=== PATIENT | female | born 1965 | race American Indian/Alaskan Native ===

== ENCOUNTER 2016-05-16 11:18 | Emergency (ER) | payer MEDICARE ==
--- NOTE | 2016-05-16 11:57 | Emergency Department Report ---
Chief Complaint: Upper Respiratory Infection Stated Complaint: SOB Time Seen by Provider: 05/16/16 11:53 - HPI History of Present Illness: 50 y/o female complain of shortness of breath x 1 day .pt state she is a current smoker a pack a day .pt denies any chest pain at present . - ROS Review of Systems: per HPI - Exam Vital Signs: Vital Signs 05/16/16 11:25 Temperature 98.1 F Pulse Rate 80 Respiratory 20 Rate Blood Pressure 154/87 O2 Sat by Pulse 97 Oximetry Physical Exam: GENERAL: The patient is well-developed and well-nourished. Patient is in NAD. HENT: Normocephalic. Atraumatic. Patient has moist mucous membranes. Throat: No erythema, swelling or exudates. EYES: Extraocular motions are intact, PERRL NECK: Supple. No meningitic signs are noted. There is no adenopathy noted. CHEST/LUNGS: wheezing noted bilateral . There is no respiratory distress noted. HEART/CARDIOVASCULAR: Regular rate and rhythm. Normal S1 S2. No murmurs, rubs , clicks, or gallops. ABDOMEN: Abdomen is soft, nontender.. Bowel sounds normoactive. There is no abdominal distention. Negative rebound tenderness. Negative Rovsing. Negative Garrison testing. Negative obturator and psoas signs. Negative CVA tenderness B/ L. : Deferred. SKIN: There is no rash. There is no edema. There is no diaphoresis. NEURO: The patient is A&Ox3. The patient has no focal neurologic deficits. MUSCULOSKELETAL: There is no tenderness or deformity. There is no limitation range of motion. PSYCH: Pt has appropriate mood and affect. MSE screening note: Focused history and physical exam performed. Due to findings the following was ordered: ED Disposition for MSE Condition: Stable
[2016-05-16] MEDS ORDERED: XOPENEX IH ONE (12:00)
[2016-05-16] MEDS ORDERED: ATROVENT IH ONE ×2 (12:01→15:10)
[2016-05-16 12:23] LABS: Basophils % (Auto) 0.8 % (0.0-1.8); Eosinophils % (Auto) 1.6 % (0.0-4.3); Hematocrit 33.7 % (30.3-42.9); Hemoglobin 10.9 gm/dl (10.1-14.3); Mean Corpuscular HGB Conc 32 % (30-34); Mean Corpuscular Hemoglobin 27 pg (28-32); Mean Corpuscular Volume 84 fl (79-97); Platelet Count 322 K/mm3 (140-440); Red Blood Count 4.02 M/mm3 (3.65-5.03); White Blood Count 6.5 K/mm3 (4.5-11.0)
[2016-05-16 12:38] LABS: Anion Gap 19 mmol/L; BUN/Creatinine Ratio 14.44; Blood Urea Nitrogen 13 mg/dL (7-17); Calcium 9.1 mg/dL (8.4-10.2); Carbon Dioxide 24 mmol/L (22-30); Chloride 99.5 mmol/L (98-107); Glucose 83 mg/dL (65-100); Potassium 4.7 mmol/L (3.6-5.0); Sodium 138 mmol/L (137-145)
[2016-05-16 13:53] LABS: Creatine Kinase MB 2.4 ng/mL (0.0-4.0)
[2016-05-16 13:58] LABS: Creatine Kinase 271 units/L (30-135)
[2016-05-16] MEDS ORDERED: PROVENTIL IH ONE (15:10)
[2016-05-16] MEDS ORDERED: DELTASONE PO ONE (15:11)
--- NOTE | 2016-05-16 17:15 | Emergency Department Report ---
HPI - General Chief Complaint: Upper Respiratory Infection Time Seen by Provider: 05/16/16 14:15 - HPI HPI: Chief complaint: Wheezing HPI: Patient with no history of asthma who smokes states she began wheezing last night. Patient has used an inhaler in the past but has never been diagnosed with asthma or COPD. Patient is a nonproductive cough and denies fever, nausea, vomiting or diarrhea. Patient states she has some mild chest soreness only when she coughs. Mode of arrival: EMS Source: Patient Began: During the night Duration: Continuous Context: See above Quality: See above Severity: 7 out of 10 Improved with: See above Worsened with: Shortness of breath worse on exertion Associated signs and symptoms: See above ED Past Medical Hx - Past Medical History Hx Heart Attack/AMI: Yes Hx Arthritis: Yes (HIP) Additional medical history: LP SHUNT/ PSEUDO TUMOR CEREBRAL ANGINA - Surgical History Additional Surgical History: WRIST - Social History Smoking Status: Current Every Day Smoker Substance Use Type: Alcohol - Medications Home Medications: Home Medications Medication Instructions Recorded Confirmed Last Taken Type Aspirin [Aspirin BABY CHEW TAB] 81 mg PO QDAY 04/24/16 04/24/16 Unknown History Carvedilol [Coreg] 25 mg PO DAILY 04/24/16 04/24/16 Unknown History Cyclobenzaprine HCl [Flexeril 5 MG 5 mg PO BID #6 tablet 04/24/16 Unknown Rx TAB] Diltiazem Cd [Cardizem Cd] 180 mg PO QDAY 04/24/16 04/24/16 Unknown History Folic Acid [Folvite] 1 mg PO QDAY 04/24/16 04/24/16 Unknown History Gabapentin [Gralise] 300 mg PO TID 04/24/16 04/24/16 Unknown History ISOSORBIDE MONOnitrate [Imdur ER] 30 mg PO DAILY 04/24/16 04/24/16 Unknown History Venlafaxine [Effexor] 25 mg PO DAILY 04/24/16 04/24/16 Unknown History ALBUTEROL Inhaler [ProAir HFA 2 puff IH QID PRN #1 inhalation 05/16/16 Unknown Rx Inhaler] Prednisone [predniSONE 5 mg (6-Day 5 mg PO .TAPER #1 tab.ds.pk 05/16/16 Unknown Rx Pack, 21 Tabs)] ED Review of Systems ROS: Stated complaint: SOB Other details as noted in HPI ROS Constitutional: No fever ENT: No uri symptoms Cardiovascular: No chest pain Respiratory: See HPI GI: No nausea vomiting or diarrhea : No dysuria frequency or urgency, Skin: No rash Neuro: No focal weakness or numbness Psych: History of depression Yanick/lymph: No edema Physical Exam - Physical Exam Vital Signs: Vital Signs 05/16/16 05/16/16 05/16/16 11:25 14:11 15:32 Temperature 98.1 F Pulse Rate 80 Pulse Rate [ 76 16 L Posterior Bilateral Throughout] Respiratory 20 Rate Respiratory 18 20 Rate [Posterior Bilateral Throughout] Blood Pressure 154/87 O2 Sat by Pulse 97 Oximetry 05/16/16 16:18 Temperature Pulse Rate Pulse Rate [ 71 Posterior Bilateral Throughout] Respiratory Rate Respiratory 18 Rate [Posterior Bilateral Throughout] Blood Pressure O2 Sat by Pulse Oximetry Physical Exam: GENERAL: The patient is well-developed well-nourished . HEENT: Normocephalic. Atraumatic. Extraocular motions are intact. Patient has moist mucous membranes. NECK: Supple. No meningitic signs are noted. There is no adenopathy noted. CHEST/LUNGS: Diffuse expiratory wheezes. There is no respiratory distress noted. HEART/CARDIOVASCULAR: Regular. There is no tachycardia. There is no gallop rub or murmur. ABDOMEN: Abdomen is soft, nontender. Patient has normal bowel sounds. There is no abdominal distention. SKIN: There is no rash. There is no edema. There is no diaphoresis. NEURO: The patient is awake, alert, and oriented. The patient is cooperative. The patient has no focal neurologic deficits. The patient has normal speech. MUSCULOSKELETAL: There is no tenderness or deformity. There is no limitation range of motion. There is no evidence of acute injury. ED Course Vital Signs 05/16/16 05/16/16 05/16/16 11:25 14:11 15:32 Temperature 98.1 F Pulse Rate 80 Pulse Rate [ 76 16 L Posterior Bilateral Throughout] Respiratory 20 Rate Respiratory 18 20 Rate [Posterior Bilateral Throughout] Blood Pressure 154/87 O2 Sat by Pulse 97 Oximetry 05/16/16 16:18 Temperature Pulse Rate Pulse Rate [ 71 Posterior Bilateral Throughout] Respiratory Rate Respiratory 18 Rate [Posterior Bilateral Throughout] Blood Pressure O2 Sat by Pulse Oximetry - Reevaluation(s) Reevaluation #1: 05/16/16 18:50 Patient given nebulizer treatment 2 and 60 mg of oral prednisone with improvement. ED Medical Decision Making - Lab Data Result diagrams: 05/16/16 12:12 05/16/16 12:12 - Radiology Data interpreted by me: Chest x-ray shows no acute process. Critical care attestation.: If time is entered above; I have spent that time in minutes in the direct care of this critically ill patient, excluding procedure time. ED Disposition Clinical Impression: Asthmatic bronchitis Qualifiers: Asthma severity: mild intermittent Asthma complication type: with acute exacerbation Qualified Code(s): J45.21 - Mild intermittent asthma with (acute) exacerbation Disposition: DISCHARGED TO HOME OR SELFCARE Is pt being admited?: No Does the pt Need Aspirin: No Condition: Stable Instructions: Asthma (ED), Acute Bronchitis (ED), Chronic Bronchitis (ED) Prescriptions: ALBUTEROL Inhaler [ProAir HFA Inhaler] 2 puff IH QID PRN #1 inhalation PRN Reason: Shortness Of Breath Prednisone [predniSONE 5 mg (6-Day Pack, 21 Tabs)] 5 mg PO .TAPER #1 tab.ds.pk Referrals: MATT GARCIA MD [Primary Care Provider] - 3-5 Days Time of Disposition: 17:11
[2016-05-16 17:47] VITALS: BP 145/76
--- NOTE | 2016-05-17 10:33 | XRay Report ---
ROUTINE CHEST, TWO VIEWS: HISTORY: Cough, upper respiratory infection. The trachea, heart, mediastinal contour, lung stuart and bony thorax are unremarkable. IMPRESSION: Unremarkable chest x-ray.
== END 2016-05-16 17:46 | disposition home or self-care (01) ==
LOC: ED 11:18
DX: J45.21 Mild intermittent asthma with (acute) exacerbation (principal); I25.2 Old myocardial infarction; M19.90 Unspecified osteoarthritis, unspecified site; F17.200 Nicotine dependence, unspecified, uncomplicated; Z79.82 Long term (current) use of aspirin
CPT/HCPCS: 36415; 71020; 80048; 82550; 82553; 84484; 85025; 94640

== ENCOUNTER 2016-07-20 01:27 | Emergency (ER) | payer MEDICARE ==
[2016-07-20] MEDS ORDERED: NORMODYNE IV ONE (02:47)
[2016-07-20 03:04] LABS: Hemoglobin 10.8 gm/dl (10.1-14.3); Mean Corpuscular HGB Conc 32 % (30-34); Mean Corpuscular Volume 77 fl (79-97); Platelet Count 205 K/mm3 (140-440); Red Blood Count 4.41 M/mm3 (3.65-5.03); Red Cell Distribution Width 16.7 % (13.2-15.2); White Blood Count 3.9 K/mm3 (4.5-11.0)
[2016-07-20 03:07] LABS: Mean Corpuscular Hemoglobin 25 pg (28-32)
[2016-07-20 03:20] LABS: Alanine Aminotransferase 89 units/L (7-56); Albumin 3.3 g/dL (3.9-5); Albumin/Globulin Ratio 0.8 %; Alkaline Phosphatase 453 units/L (35-129); Anion Gap 17 mmol/L; BUN/Creatinine Ratio 23.33; Bilirubin,Total 1.1 mg/dL (0.1-1.2); Blood Urea Nitrogen 14 mg/dL (7-17); Carbon Dioxide 22 mmol/L (22-30); Chloride 99.7 mmol/L (98-107); Glucose 88 mg/dL (65-100); Lipase 39 units/L (13-60); Potassium 3.8 mmol/L (3.6-5.0); Sodium 135 mmol/L (137-145); Total Protein 7.3 g/dL (6.3-8.2)
[2016-07-20] MEDS ORDERED: MORPHINE IV ONE (04:10)
[2016-07-20] MEDS ORDERED: ZOFRAN IV ONE (04:12)
[2016-07-20] MEDS ORDERED: NACL 0.9% 1000 ML 1,000 ML ONE (05:30)
[2016-07-20] MEDS ORDERED: NACL 0.9% 1000 ML 1,000 ML IV ONE (05:37)
--- NOTE | 2016-07-20 06:14 | Emergency Department Report ---
HPI - General Chief Complaint: Abdominal Pain Time Seen by Provider: 07/20/16 05:36 - HPI HPI: The patient is a 50-year-old female presents for evaluation of abdominal pain. The patient reports epigastric abdominal pain for the past 2-3 hours prior to arrival, burning in quality, 10/10 in severity, exacerbated with the dry heaves , constant since onset. The patient denies fever, chills, night sweats, dyspnea , chest pain, hematemesis, diarrhea, blood in the stool, dark tarry stool, dysuria, hematuria, flank pain, genital discharge, inability to pass flatus. ED Past Medical Hx - Past Medical History Hx Hypertension: Yes Hx Heart Attack/AMI: Yes Hx Diabetes: Yes Hx Arthritis: Yes (HIP) Additional medical history: LP SHUNT/ PSEUDO TUMOR CEREBRAL ANGINA, NEUROPATHY - Surgical History Additional Surgical History: WRIST - Social History Smoking Status: Current Every Day Smoker Substance Use Type: None - Medications Home Medications: Home Medications Medication Instructions Recorded Confirmed Last Taken Type Carvedilol [Coreg] 25 mg PO BID 04/24/16 07/16/16 Unknown History Diltiazem Cd [Cardizem Cd] 180 mg PO QHS 04/24/16 07/16/16 Unknown History Folic Acid [Folvite] 1 mg PO QDAY 04/24/16 07/16/16 Unknown History Gabapentin [Gralise] 300 mg PO TID 04/24/16 07/16/16 Unknown History ISOSORBIDE MONOnitrate [Imdur ER] 30 mg PO BID 04/24/16 07/16/16 Unknown History Venlafaxine [Effexor] 150 mg PO DAILY 04/24/16 07/16/16 Unknown History ALBUTEROL Inhaler [ProAir HFA 2 puff IH QID PRN #1 inhalation 05/16/16 07/16/16 Unknown Rx Inhaler] Aspirin [Aspirin BABY CHEW TAB] 81 mg PO QDAY #30 tab.chew 07/16/16 Unknown Rx Butalb/Acetamin/Caff 50-325-40 1 tab PO Q8HR PRN 07/16/16 07/16/16 Unknown History [Fioricet] Cyclobenzaprine HCl [Flexeril 5 MG 5 mg PO Q8HR PRN #10 tab 07/16/16 Unknown Rx TAB] Lidocaine [Lidoderm Patch] 1 each TP PRN 07/16/16 07/16/16 Unknown History Lisinopril [Zestril] 20 mg PO QDAY 07/16/16 07/16/16 Unknown History Metoclopramide [Reglan] 10 mg PO TID 07/16/16 07/16/16 Unknown History Multivitamin Tab [Multiple Vitamin 1 each PO QDAY 07/16/16 07/16/16 Unknown History TAB (Theragran)] Pentoxifylline [TRENtal] 400 mg PO TID 07/16/16 07/16/16 Unknown History Propranolol [Inderal] 10 mg PO ONCE 07/16/16 07/16/16 Unknown History Sulindac 150 mg PO BID 07/16/16 07/16/16 Unknown History traZODone [Desyrel] 50 mg PO QHS 07/16/16 07/16/16 Unknown History Cyclobenzaprine HCl [Flexeril 5 MG 5 mg PO Q8HR PRN #15 tab 07/20/16 Unknown Rx TAB] Omeprazole Magnesium [PriLOSEC Otc] 20 mg PO QDAY #14 tablet. 07/20/16 Unknown Rx ED Review of Systems ROS: Stated complaint: CP Other details as noted in HPI Constitutional: denies: fever ENT: denies: throat or neck pain Respiratory: denies: cough, shortness of breath Cardiovascular: denies: chest pain Endocrine: denies unexplained weight loss or gain Gastrointestinal: reports abdominal pain, nausea Genitourinary: denies: dysuria Musculoskeletal: denies: leg swelling Skin: denies: rash Neurological: denies: headache Hematological/Lymphatic: denies: easy bleeding or easy bruising Psych: denies sadness or hopelessness Physical Exam - Physical Exam Vital Signs: Vital Signs 07/20/16 07/20/16 07/20/16 01:48 03:37 05:25 Temperature 98.3 F Pulse Rate 77 92 H 100 H Respiratory 28 H 15 Rate Blood Pressure 150/100 130/73 Blood Pressure 81/57 [Left] O2 Sat by Pulse 99 95 Oximetry 07/20/16 07/20/16 05:35 05:45 Temperature Pulse Rate 102 H 99 H Respiratory 18 Rate Blood Pressure Blood Pressure 81/57 98/60 [Left] O2 Sat by Pulse 98 Oximetry Physical Exam: General: well-nourished, well-developed, no acute distress Head: Normocephalic, atraumatic Eyes: normal sclera ENT: Mucous membranes are pale and dry Neck: trachea midline, neck supple, No neck stiffness, no cervical adenopathy Respiratory: Breath sounds equal bilaterally, no wheezing, rales, or rhonchi Cardio: S1 and S2 present, no murmurs, rubs, gallops, capillary refill is delayed Abdomen: Normoactive bowel sounds, soft abdomen, epigastric tenderness to palpation present, no rigidity, no guarding or rebound tenderness Musc: No pitting edema Skin: No rash Neuro: no facial drooping, normal speech Psych: Normal affect ED Course Vital Signs 07/20/16 07/20/16 07/20/16 01:48 03:37 05:25 Temperature 98.3 F Pulse Rate 77 92 H 100 H Respiratory 28 H 15 Rate Blood Pressure 150/100 130/73 Blood Pressure 81/57 [Left] O2 Sat by Pulse 99 95 Oximetry 07/20/16 07/20/16 05:35 05:45 Temperature Pulse Rate 102 H 99 H Respiratory 18 Rate Blood Pressure Blood Pressure 81/57 98/60 [Left] O2 Sat by Pulse 98 Oximetry ED Medical Decision Making - Lab Data Result diagrams: 07/20/16 02:53 07/20/16 02:53 - Medical Decision Making The patient was seen and examined by myself. The patient is placed on a electric power line repairer and continuous pulse ox. On initial evaluation, the patient was found to be in no distress. Evaluation orders are placed. X-ray of the chest is unremarkable. EKG is unremarkable. IV access is established and the patient is given 1 L normal saline fluid bolus for treatment of dehydration, and Zofran for nausea, and IV morphine for pain. Lab results were non- concerning including WBC, hemoglobin, hematocrit, electrolytes, renal function, lipase, and normal troponin level. The patient was reevaluated and reported that their symptoms were markedly improved. The patient is stable for discharge with outpatient follow-up. The patient is given follow-up and return instructions. The patient expressed understanding and agreed with the plan. The patient is discharged in stable condition. Critical care attestation.: If time is entered above; I have spent that time in minutes in the direct care of this critically ill patient, excluding procedure time. ED Disposition Clinical Impression: Abdominal pain, acute, epigastric, Dehydration Disposition: DISCHARGED TO HOME OR SELFCARE Is pt being admited?: No Does the pt Need Aspirin: No Condition: Stable Instructions: Peptic Ulcer (ED), Gastritis (ED), Diet for Ulcers and Gastritis (ED), Abdominal Pain (ED) Prescriptions: Cyclobenzaprine HCl [Flexeril 5 MG TAB] 5 mg PO Q8HR PRN #15 tab PRN Reason: Pain Omeprazole Magnesium [PriLOSEC Otc] 20 mg PO QDAY #14 tablet.dr Referrals: MATT GARCIA MD [Primary Care Provider] - 3-5 Days Time of Disposition: 06:11
--- NOTE | 2016-07-20 07:23 | XRay Report ---
AP CHEST: HISTORY: chest pain AP view of the chest demonstrates a normal mediastinal and cardiac contour with clear lungs and normal bony and soft tissue structures. IMPRESSION: Unremarkable AP chest. No significant change since 05/16/16.
[2016-07-20 07:39] VITALS: BP 95/55
== END 2016-07-20 07:40 | disposition home or self-care (01) ==
LOC: ED 01:27
DX: E86.0 Dehydration (principal); R10.13 Epigastric pain; I10 Essential (primary) hypertension; I25.2 Old myocardial infarction; E11.9 Type 2 diabetes mellitus without complications; F17.200 Nicotine dependence, unspecified, uncomplicated; Z87.39 Personal history of other diseases of the musculoskeletal system and connective tissue
CPT/HCPCS: 36415; 71010; 80053; 83690; 84484; 85027; 93005; 93010; 96361; 96374; 96375; 99285; J2270; J2405; J7030

== ENCOUNTER 2016-07-28 08:12 | Emergency (ER) | payer MEDICARE ==
[2016-07-28 08:50] VITALS: BP 160/93
--- NOTE | 2016-07-28 10:28 | XRay Report ---
Right ankle: The bones are diffusely demineralized. There is mild generalized swelling of the soft tissues. There is no joint effusion. The joints are aligned and preserved. The articular margins are smooth. Of note is a surgical screw in the base of the first metatarsal. Impression: Osteoporosis and nonspecific swelling.
[2016-07-28] MEDS ORDERED: TYLENOL PO ONE (11:47)
--- NOTE | 2016-07-28 11:57 | Emergency Department Report ---
Entered by ELMER BACH, acting as scribe for BRENNAN MARTEL PA. ED Extremity Problem HPI - General Chief complaint: Extremity Problem,Nontraumatic Stated complaint: R LEG/FOOT PAIN Time Seen by Provider: 07/28/16 09:40 Source: patient Mode of arrival: Wheelchair Limitations: No Limitations - History of Present Illness Initial comments: 50 y/o female with PMHx of bilateral foot neuropathy and TIA, presents to the ED via EMS c/o right ankle pain beginning 2 days ago. She denies known recent fall or trauma. However, she notes that when she got out of a van 2 days ago, she did not "slide" out of the van as she usually does. The current symptoms are not consistent with her prior neuropathy symptoms. Denies fever, nausea, vomiting, SOB, chest pain, change in weakness, change in numbness, and abdominal pain. Noted the patient is compliant with her HTN medication and took her dosage this morning, and denies taking blood thinners. MD Complaint: extremity pain -: days(s) (2 days) Location: right, lower extremity, other ((right ankle)) History of Same: No -: No fever Radiation: none Severity scale (0 -10): 7 Consistency: constant Improves with: nothing Worsens with: weight bearing, palpation Associated Symptoms: denies: chest pain, shortness of breath, fever - Related Data Home Medications Medication Instructions Recorded Confirmed Last Taken Carvedilol [Coreg] 25 mg PO BID 04/24/16 07/16/16 Unknown Diltiazem Cd [Cardizem Cd] 180 mg PO QHS 04/24/16 07/16/16 Unknown Folic Acid [Folvite] 1 mg PO QDAY 04/24/16 07/16/16 Unknown Gabapentin [Gralise] 300 mg PO TID 04/24/16 07/16/16 Unknown ISOSORBIDE MONOnitrate [Imdur ER] 30 mg PO BID 04/24/16 07/16/16 Unknown Venlafaxine [Effexor] 150 mg PO DAILY 04/24/16 07/16/16 Unknown Butalb/Acetamin/Caff 50-325-40 1 tab PO Q8HR PRN 07/16/16 07/16/16 Unknown [Fioricet] Lidocaine [Lidoderm Patch] 1 each TP PRN 07/16/16 07/16/16 Unknown Lisinopril [Zestril] 20 mg PO QDAY 07/16/16 07/16/16 Unknown Metoclopramide [Reglan] 10 mg PO TID 07/16/16 07/16/16 Unknown Multivitamin Tab [Multiple Vitamin 1 each PO QDAY 07/16/16 07/16/16 Unknown TAB (Theragran)] Pentoxifylline [TRENtal] 400 mg PO TID 07/16/16 07/16/16 Unknown Propranolol [Inderal] 10 mg PO ONCE 07/16/16 07/16/16 Unknown Sulindac 150 mg PO BID 07/16/16 07/16/16 Unknown traZODone [Desyrel] 50 mg PO QHS 07/16/16 07/16/16 Unknown Previous Rx's Medication Instructions Recorded Last Taken Type ALBUTEROL Inhaler [ProAir HFA 2 puff IH QID PRN #1 inhalation 05/16/16 Unknown Rx Inhaler] Aspirin [Aspirin BABY CHEW TAB] 81 mg PO QDAY #30 tab.chew 07/16/16 Unknown Rx Cyclobenzaprine HCl [Flexeril 5 MG 5 mg PO Q8HR PRN #10 tab 07/16/16 Unknown Rx TAB] Cyclobenzaprine HCl [Flexeril 5 MG 5 mg PO Q8HR PRN #15 tab 07/20/16 Unknown Rx TAB] Omeprazole Magnesium [PriLOSEC Otc] 20 mg PO QDAY #14 tablet. 07/20/16 Unknown Rx Allergies Allergy/AdvReac Type Severity Reaction Status Date / Time naproxen Allergy Itching Verified 04/24/16 11:31 Penicillins Allergy Unknown Verified 04/24/16 11:31 tramadol Allergy Itching Verified 04/24/16 11:31 Contrast dye Allergy Hives Uncoded 04/24/16 11:31 ED Review of Systems Comment: All other systems reviewed and negative Constitutional: denies: chills, fever Respiratory: denies: shortness of breath Cardiovascular: denies: chest pain Gastrointestinal: denies: abdominal pain, nausea, vomiting Musculoskeletal: other (right ankle pain and tenderness) Neurological: denies: weakness, numbness ED Past Medical Hx - Past Medical History Previous Medical History?: Yes Hx Hypertension: Yes Hx Heart Attack/AMI: Yes Hx Diabetes: Yes Hx Arthritis: Yes (HIP) Additional medical history: LP SHUNT/ PSEUDO TUMOR CEREBRAL ANGINA, NEUROPATHY - Surgical History Past Surgical History?: Yes Additional Surgical History: WRIST - Social History Smoking Status: Current Every Day Smoker Substance Use Type: None - Medications Home Medications: Home Medications Medication Instructions Recorded Confirmed Last Taken Type Carvedilol [Coreg] 25 mg PO BID 04/24/16 07/16/16 Unknown History Diltiazem Cd [Cardizem Cd] 180 mg PO QHS 04/24/16 07/16/16 Unknown History Folic Acid [Folvite] 1 mg PO QDAY 04/24/16 07/16/16 Unknown History Gabapentin [Gralise] 300 mg PO TID 04/24/16 07/16/16 Unknown History ISOSORBIDE MONOnitrate [Imdur ER] 30 mg PO BID 04/24/16 07/16/16 Unknown History Venlafaxine [Effexor] 150 mg PO DAILY 04/24/16 07/16/16 Unknown History ALBUTEROL Inhaler [ProAir HFA 2 puff IH QID PRN #1 inhalation 05/16/16 07/16/16 Unknown Rx Inhaler] Aspirin [Aspirin BABY CHEW TAB] 81 mg PO QDAY #30 tab.chew 07/16/16 Unknown Rx Butalb/Acetamin/Caff 50-325-40 1 tab PO Q8HR PRN 07/16/16 07/16/16 Unknown History [Fioricet] Cyclobenzaprine HCl [Flexeril 5 MG 5 mg PO Q8HR PRN #10 tab 07/16/16 Unknown Rx TAB] Lidocaine [Lidoderm Patch] 1 each TP PRN 07/16/16 07/16/16 Unknown History Lisinopril [Zestril] 20 mg PO QDAY 07/16/16 07/16/16 Unknown History Metoclopramide [Reglan] 10 mg PO TID 07/16/16 07/16/16 Unknown History Multivitamin Tab [Multiple Vitamin 1 each PO QDAY 07/16/16 07/16/16 Unknown History TAB (Theragran)] Pentoxifylline [TRENtal] 400 mg PO TID 07/16/16 07/16/16 Unknown History Propranolol [Inderal] 10 mg PO ONCE 07/16/16 07/16/16 Unknown History Sulindac 150 mg PO BID 07/16/16 07/16/16 Unknown History traZODone [Desyrel] 50 mg PO QHS 07/16/16 07/16/16 Unknown History Cyclobenzaprine HCl [Flexeril 5 MG 5 mg PO Q8HR PRN #15 tab 07/20/16 Unknown Rx TAB] Omeprazole Magnesium [PriLOSEC Otc] 20 mg PO QDAY #14 tablet. 07/20/16 Unknown Rx ED Physical Exam - General Limitations: No Limitations - Other Other exam information: GENERAL: Patient is alert and oriented x 3. No apparent distress, atraumatic. HEAD: Head is normocephalic and atraumatic. EYES: Extraocular movements are intact. EARS: Symmetrical, atraumatic, Gross auditory nml bilaterally. NOSE: Nose symmetrical, nontender. MOUTH:Mouth is well hydrated and without lesions.Patent airway. NECK: Supple. Non edematous, no carotid bruits. No lymphadenopathy or thyromegaly. LUNGS: Symmetrical with respiration. No wheezing, rales or crackles, CTAB. HEART: Regular rate and rhythm with normal S1/S2 present. No murmurs, rubs, or gallops. ABDOMEN: Soft, nondistended. Nontender to palpation on all quadrants. No organomegaly was noted. Positive bowel sounds. No CVA tenderness. EXTREMITIES/MUSCULOSKELETAL: No cyanosis, clubbing, rash, lesions or edema. Full ROM bilaterally. UE/LE Pulses 2+ bilaterally. Right ankle pain and tenderness, painful movement (flexion and extension), capillary refill less than two seconds. SKIN: Warm and dry. No lesions, ulceration or induration present NEUROLOGIC: No focal deficit., ED Course Vital Signs 07/28/16 08:44 Temperature 98.4 F Pulse Rate 80 Respiratory 18 Rate Blood Pressure 160/93 O2 Sat by Pulse 100 Oximetry ED Medical Decision Making - Radiology Data Radiology results: report reviewed, image reviewed Right ankle: The bones are diffusely demineralized. There is mild generalized swelling of the soft tissues. There is no joint effusion. The joints are aligned and preserved. The articular margins are smooth. Of note is a surgical screw in the base of the first metatarsal. Impression: Osteoporosis and nonspecific swelling. Transcribed By: JULISSA Dictated By: GODFREY FRAZIER MD Electronically Authenticated By: GODFREY FRAZIER MD Signed Date/Time: 07/28/16 1015 - Medical Decision Making Patient has been evaluated by the provider in fast track. 50 y/o female presents complaining of nontraumatic right ankle pain beginning 2 days ago. The patient's right ankle x-ray shows osteoporosis and nonspecific swelling. Patient will be sent home with Discussed the follow-up with a PCP as referred. Discussed if her symptoms return or worsen to return to the ED. The patient states understanding and will follow instructions. Vital signs stable. Patient is in no acute distress. ED Disposition Clinical Impression: Pain and swelling of right ankle Disposition: DISCHARGED TO HOME OR SELFCARE Is pt being admited?: No Does the pt Need Aspirin: No Condition: Stable Instructions: RICE Therapy (ED) Additional Instructions: Please follow up with her primary care provider for your right ankle sprain. You can ice on it elevated and wear your splint. He can take over the counter Tylenol extra strength 500 mg 1-2 tablets every 6-8 hours. Referrals: PRIMARY CARE, [Primary Care Provider] - 3-5 Days Forms: Work/School Release Form(ED) This documentation as recorded by the MIKALA porter GRACE,accurately reflects the service I personally performed and the decisions made by me,BRENNAN MARTEL PA.
== END 2016-07-28 12:18 | disposition home or self-care (01) ==
LOC: ED 08:12
DX: M25.471 Effusion, right ankle (principal); M25.571 Pain in right ankle and joints of right foot; I10 Essential (primary) hypertension; I25.2 Old myocardial infarction; E11.9 Type 2 diabetes mellitus without complications; M19.90 Unspecified osteoarthritis, unspecified site; F17.200 Nicotine dependence, unspecified, uncomplicated; Z79.82 Long term (current) use of aspirin; Z88.8 Allergy status to other drugs, medicaments and biological substances; Z88.0 Allergy status to penicillin; Z91.041 Radiographic dye allergy status